=== PATIENT | male | born 1960 | race Caucasian/White ===

== ENCOUNTER 2019-06-12 10:45 | Inpatient (IN) | payer MEDICARE ==
--- NOTE | 2019-06-12 11:14 | Emergency Department Report ---
ED Neuro Deficit HPI - General Chief Complaint: Neuro Symptoms/Deficit Stated Complaint: LT SIDE WEAKNESS Time Seen by Provider: 06/12/19 10:58 Source: patient Mode of arrival: Wheelchair Limitations: No Limitations - History of Present Illness Initial Comments: [facility] Date of Service: 06/12/2019 10:55:26 Impression: RO Acute Ischemic Stroke Right Hemispheric Comments: the patient is a 58-year-old gentleman with what sounds like poorly controlled type 2 diabetes and a history of hypertension. He appears to be having a right hemispheric subcortical stroke syndrome. He does have evidence of chronic changes on CT head with likely asymptomatic lacunar infarcts in the deep subcortical regions of the right hemisphere. His blood sugar is also high which may be contributing to his weakness. Regardless he'll need stroke workup and inpatient neurology consultation. Because he was already taking aspirin daily recommend loading with Plavix 300 mg and is continuing aspirin for now until inpatient neurology consultation Mechanism of Stroke: Small Vessel Disease Metrics: Last Known Well: 06/11/2019 22:00:00 [facility] Notification Time: 06/12/2019 10:54:26 Arrival Time: 06/12/2019 10:45:00 Stamp Time: 06/12/2019 10:55:26 Time First Login Attempt: 06/12/2019 11:00:00 Video Start Time: 06/12/2019 11:00:00 Symptoms: left-sided weakness NIHSS Start Assessment Time: 06/12/2019 11:00:00 Patient is not a candidate for tPA. Patient was not deemed candidate for tPA thrombolytics because of Last Well Known Above 4.5 Hours. Video End Time: 06/12/2019 11:10:00 CT head showed no acute hemorrhage or acute core infarct. Advanced imaging was not obtained as the presentation was not suggestive of Large Vessel Occlusive Disease. ER physician notified of the decision on thrombolytics management. Our recommendations are outlined below. Recommendations: would load with Plavix 300 mg as long as the official read on the CT head is unremarkable Therapies: Physical Therapy, Occupational Therapy, Speech Therapy Assessment When Applicable Disposition: Sign Out Sign Out: Discussed with Emergency Department Provider History of Present Illness: Patient is a 58 years old Male. Patient was brought by EMS for symptoms of left-sided weakness 58-year-old gentleman with a history of hypertension and diabetes who for the past several days has had a headache. He went to bed at 22:00 without issue and then woke up at 6 AM and noticed that his left arm and leg felt weak. His blood glucose is 324 on arrival to the emergency department. Blood pressure 198 systolic. He's had a headache the past several days but nothing focal. No history of stroke. Takes aspirin daily. CT head showed no acute hemorrhage or acute core infarct. Examination: 1A: Level of Consciousness - Alert; keenly responsive + 0 1B: Ask Month and Age - Both Questions Right + 0 1C: Blink Eyes & Squeeze Hands - Performs Both Tasks + 0 2: Test Horizontal Extraocular Movements - Normal + 0 3: Test Visual Quijano - No Visual Loss + 0 4: Test Facial Palsy (Use Grimace if Obtunded) - Normal symmetry + 0 5A: Test Left Arm Motor Drift - Drift, but doesn't hit bed + 1 5B: Test Right Arm Motor Drift - No Drift for 10 Seconds + 0 6A: Test Left Leg Motor Drift - Drift, but doesn't hit bed + 1 6B: Test Right Leg Motor Drift - No Drift for 5 Seconds + 0 7: Test Limb Ataxia (FNF/Heel-Pruitt) - No Ataxia + 0 8: Test Sensation - Normal; No sensory loss + 0 9: Test Language/Aphasia - Normal; No aphasia + 0 10: Test Dysarthria - Normal + 0 11: Test Extinction/Inattention - No abnormality + 0 NIHSS Score: 2 Patient was informed the Neurology Consult would happen via TeleHealth consult by way of interactive audio and video telecommunications and consented to receiving care in this manner. Due to the immediate potential for life-threatening deterioration due to underlying acute neurologic illness, I spent 35 minutes providing critical care. This time includes time for face to face visit via telemedicine, review of medical records, imaging studies and discussion of findings with providers, the patient and/or family. Dr Nadia Mustafa [facility] - Related Data Allergies/Adverse Reactions: Allergies Allergy/AdvReac Type Severity Reaction Status Date / Time No Known Allergies Allergy Unverified 06/12/19 10:51 ED Review of Systems ROS: Stated complaint: LT SIDE WEAKNESS Other details as noted in HPI ED Past Medical Hx - Past Medical History Previous Medical History?: Yes Hx Hypertension: Yes Hx Diabetes: Yes - Surgical History Past Surgical History?: Yes Additional Surgical History: Femoral bypass BLE ED Neuro Physical Exam - General Limitations: No Limitations Suspected Stroke: Yes - NIHSS Assessment Interval: Baseline 1a. Level of Consciousness: alert/keenly responsive 1b. LOC Questions: answers both correctly 1c. LOC Commands: performs tasks correctly 2. Best Gaze: normal 3. Visual: no visual loss 4. Facial Palsy: normal symmetrical movement 5b. Motor Arm Right: no drift 5a. Motor Arm Left: drift 6a. Motor Leg Left: drift 6b. Motor Leg Right: no drift 7. Limb Ataxia: absent 8. Sensory: normal 9. Best Language: no aphasia 10. Dysarthria: normal 11. Extinction/Inattention: no abnormality Total Score: 2 Stroke Severity: Minor Stroke - Lab Data Lab Results 06/12/19 Range/Units 10:57 POC Glucose 327 H (70-105) Critical care attestation.: If time is entered above; I have spent that time in minutes in the direct care of this critically ill patient, excluding procedure time. ED Disposition Clinical Impression: Stroke (cerebrum) Qualifiers: CVA mechanism: unspecified Qualified Code(s): I63.9 - Cerebral infarction, unspecified Disposition: DC-09 OP ADMIT IP TO THIS HOSP Is pt being admited?: Yes Does the pt Need Aspirin: No Condition: Stable
--- NOTE | 2019-06-12 11:16 | Cat Scan Report ---
CT head/brain wo con INDICATION / CLINICAL INFORMATION: 58 years Male; neuro deficits <6hrs or sx present upon awakening. TECHNIQUE: Routine CT head without contrast. All CT scans at this location are performed using CT dos e reduction for ALARA by means of automated exposure control. COMPARISON: None. FINDINGS: BRAIN / INTRACRANIAL CONTENTS: There are old lacunar infarcts involving the right basal ganglia inclu ding the internal capsule. There otherwise appears to be mild cerebral white matter disease most cons istent with microvascular angiopathy. There is no clear CT evidence of acute intracranial hemorrhage or significant mass effect. ORBITS: No significant abnormality of visualized orbits. SINUSES / MASTOIDS: No significant abnormality the visualized paranasal sinuses or mastoid air cells. CRANIOCERVICAL JUNCTION: No significant abnormality. ADDITIONAL FINDINGS: None. IMPRESSION: 1. There are old small lacunar infarcts involving the right basal ganglia along with mild microvascul ar angiopathy. 2. There is no CT evidence of acute intracranial hemorrhage. The study was specified as code stroke and the findings were called emergently to Dr. Burton in the ER at 10:15 AM Central standard time. Signer Name: Harjeet Valdovinos MD Signed: 06/12/2019 11:11 AM Workstation Name: [id number]
[2019-06-12 11:21] LABS: Basophils # (Auto) 0.1 K/mm3 (0.0-0.1); Basophils % (Auto) 0.9 % (0.0-1.8); Eosinophils # (Auto) 0.2 K/mm3 (0.0-0.4); Eosinophils % (Auto) 2.8 % (0.0-4.3); Hematocrit 50.2 % (35.5-45.6); Hemoglobin 16.7 gm/dl (11.8-15.2); Lymphocytes # (Auto) 1.8 K/mm3 (1.2-5.4); Lymphocytes % (Auto) 22.8 % (13.4-35.0); Mean Corpuscular HGB Conc 33 % (32-34); Mean Corpuscular Volume 86 fl (84-94); Monocytes # (Auto) 0.8 K/mm3 (0.0-0.8); Monocytes % (Auto) 10.7 % (0.0-7.3); Platelet Count 178 K/mm3 (140-440); Red Blood Count 5.82 M/mm3 (3.65-5.03); Red Cell Distribution Width 13.6 % (13.2-15.2)
[2019-06-12 11:34] LABS: BUN/Creatinine Ratio 21; Blood Urea Nitrogen 17 mg/dL (9-20); Calcium 9.3 mg/dL (8.4-10.2); Hemolysis Index 14
[2019-06-12 11:35] LABS: INR 0.92 (0.87-1.13); Partial Thromboplastin Time 26.9 Sec. (24.2-36.6)
[2019-06-12] MEDS ORDERED: PLAVIX PO ONE (11:40)
[2019-06-12] MEDS ORDERED: HumuLIN R IV ONE (11:47)
--- NOTE | 2019-06-12 11:47 | Emergency Department Report ---
<TASNEEMRANJIT - Last Filed: 06/12/19 12:43> ED Neuro Deficit HPI - General Chief Complaint: Neuro Symptoms/Deficit Stated Complaint: LT SIDE WEAKNESS Time Seen by Provider: 06/12/19 10:58 - History of Present Illness Initial Comments: Patient is a 58-year-old male with history of uncontrolled diabetes, hypertension, and DVT who presents today with complaints of left-sided weakness times 6 AM this morning upon waking. Patient denies history of CVA or WI. He states when he went to bed around 11 PM last night he felt completely normal. Patient reports upon waking, he was unable to lift his left arm or left leg. He states the symptoms resolved after about 1 hour. She also admits to having a mild generalized headache for the past few days. Patient denies any dizziness, changes, trouble swallowing, difficulty with speech, chest pain, or shortness of breath. Patient states there is still some mild weakness on his left side and numbness/tingling in his legs. -: Sudden Location: left arm, left leg Presenting Symptoms: Present: Weak/Paralyzed One Side. Absent: Facial Droop/Numbness Place: home Severity: severe Quality: weak, numb Improves With: time Worsens With: none On Anticoagulants: No Context: sudden onset Associated Symptoms: headaches. denies: confusion, diaphoresis, nausea/vomiting, shortness of breath, syncope Treatments Prior to Arrival: Aspirin - Related Data Home Medications: Home Medications Medication Instructions Recorded Confirmed Last Taken Atorvastatin [Lipitor Tab] 40 mg PO QDAY 06/12/19 06/12/19 06/11/19 Valsartan [Diovan] 320 mg PO QDAY 06/12/19 06/12/19 06/11/19 hydrALAZINE [Apresoline TAB] 100 mg PO BID 06/12/19 06/12/19 06/11/19 Allergies/Adverse Reactions: Allergies Allergy/AdvReac Type Severity Reaction Status Date / Time No Known Allergies Allergy Verified 06/12/19 15:06 ED Review of Systems Constitutional: denies: chills, fever Eyes: denies: vision change ENT: denies: throat pain, hearing loss Respiratory: denies: cough, shortness of breath, wheezing Cardiovascular: denies: chest pain, palpitations Gastrointestinal: denies: abdominal pain, nausea, vomiting Musculoskeletal: denies: back pain, joint swelling, arthralgia Neurological: headache, weakness, numbness. denies: confusion ED Past Medical Hx - Medications Home Medications: Home Medications Medication Instructions Recorded Confirmed Last Taken Type Atorvastatin [Lipitor Tab] 40 mg PO QDAY 06/12/19 06/12/19 06/11/19 History Valsartan [Diovan] 320 mg PO QDAY 06/12/19 06/12/19 06/11/19 History hydrALAZINE [Apresoline TAB] 100 mg PO BID 06/12/19 06/12/19 06/11/19 History ED Neuro Physical Exam - Head Head exam: Present: atraumatic, normocephalic - Eye Eye exam: Present: normal appearance, PERRL, EOMI - ENT ENT exam: Absent: normal orophraynx - Neck Neck exam: Present: full ROM. Absent: tenderness - Respiratory Respiratory exam: Present: normal lung sounds bilaterally. Absent: respiratory distress, wheezes, rales, rhonchi - Cardiovascular Cardiovascular Exam: Present: regular rate, normal rhythm, normal heart sounds - GI/Abdominal GI/Abdominal exam: Present: soft. Absent: tenderness - Rectal Rectal exam: Present: deferred - Extremities Exam Extremities exam: Absent: full ROM, tenderness, joint swelling - Neurological Exam Neurological exam: Present: alert, oriented X3, CN II-XII intact, motor sensory deficit - Psychiatric Psychiatric exam: Present: normal affect, normal mood - Skin Skin exam: Present: warm, dry, intact, normal color. Absent: rash - Lab Data Result diagrams: 06/12/19 11:15 06/12/19 11:15 Lab Results 06/12/19 06/12/19 06/12/19 Range/Units 10:57 11:15 11:15 WBC 7.8 (4.5-11.0) K/mm3 RBC 5.82 H (3.65-5.03) M/mm3 Hgb 16.7 H (11.8-15.2) gm/dl Hct 50.2 H (35.5-45.6) % MCV 86 (84-94) fl MCH 29 (28-32) pg MCHC 33 (32-34) % RDW 13.6 (13.2-15.2) % Plt Count 178 (140-440) K/mm3 Lymph % (Auto) 22.8 (13.4-35.0) % [place] % (Auto) 10.7 H (0.0-7.3) % Eos % (Auto) 2.8 (0.0-4.3) % Baso % (Auto) 0.9 (0.0-1.8) % Lymph # 1.8 (1.2-5.4) K/mm3 [place] # 0.8 (0.0-0.8) K/mm3 Eos # 0.2 (0.0-0.4) K/mm3 Baso # 0.1 (0.0-0.1) K/mm3 Seg Neutrophils % 62.8 (40.0-70.0) % Seg Neutrophils # 4.9 (1.8-7.7) K/mm3 PT 12.1 L (12.2-14.9) Sec. INR 0.92 (0.87-1.13) APTT 26.9 (24.2-36.6) Sec. Thrombin Time (15.1-19.6) Sec. Sodium (137-145) mmol/L Potassium (3.6-5.0) mmol/L Chloride (98-107) mmol/L Carbon Dioxide (22-30) mmol/L Anion Gap mmol/L BUN (9-20) mg/dL Creatinine (0.8-1.5) mg/dL Estimated GFR ml/min BUN/Creatinine Ratio % Glucose (75-100) mg/dL POC Glucose 327 H (70-105) Calcium (8.4-10.2) mg/dL Troponin T (0.00-0.029) ng/mL 06/12/19 06/12/19 Range/Units 11:15 11:15 WBC (4.5-11.0) K/mm3 RBC (3.65-5.03) M/mm3 Hgb (11.8-15.2) gm/dl Hct (35.5-45.6) % MCV (84-94) fl MCH (28-32) pg MCHC (32-34) % RDW (13.2-15.2) % Plt Count (140-440) K/mm3 Lymph % (Auto) (13.4-35.0) % [place] % (Auto) (0.0-7.3) % Eos % (Auto) (0.0-4.3) % Baso % (Auto) (0.0-1.8) % Lymph # (1.2-5.4) K/mm3 [place] # (0.0-0.8) K/mm3 Eos # (0.0-0.4) K/mm3 Baso # (0.0-0.1) K/mm3 Seg Neutrophils % (40.0-70.0) % Seg Neutrophils # (1.8-7.7) K/mm3 PT (12.2-14.9) Sec. INR (0.87-1.13) APTT (24.2-36.6) Sec. Thrombin Time 17.1 (15.1-19.6) Sec. Sodium 136 L (137-145) mmol/L Potassium 4.3 (3.6-5.0) mmol/L Chloride 94.8 L (98-107) mmol/L Carbon Dioxide 28 (22-30) mmol/L Anion Gap 18 mmol/L BUN 17 (9-20) mg/dL Creatinine 0.8 (0.8-1.5) mg/dL Estimated GFR > 60 ml/min BUN/Creatinine Ratio 21 % Glucose 390 H (75-100) mg/dL POC Glucose (70-105) Calcium 9.3 (8.4-10.2) mg/dL Troponin T < 0.010 (0.00-0.029) ng/mL - Radiology Data Radiology results: report reviewed CT head/brain wo con INDICATION / CLINICAL INFORMATION: 58 years Male; neuro deficits <6hrs or sx present upon awakening. TECHNIQUE: Routine CT head without contrast. All CT scans at this location are performed using CT dose reduction for ALARA by means of automated exposure control. COMPARISON: None. FINDINGS: BRAIN / INTRACRANIAL CONTENTS: There are old lacunar infarcts involving the right basal ganglia including the internal capsule. There otherwise appears to be mild cerebral white matter disease most consistent with microvascular angiopathy. There is no clear CT evidence of acute intracranial hemorrhage or significant mass effect. ORBITS: No significant abnormality of visualized orbits. SINUSES / MASTOIDS: No significant abnormality the visualized paranasal sinuses or mastoid air cells. CRANIOCERVICAL JUNCTION: No significant abnormality. ADDITIONAL FINDINGS: None. IMPRESSION: 1. There are old small lacunar infarcts involving the right basal ganglia along with mild microvascular angiopathy. 2. There is no CT evidence of acute intracranial hemorrhage. The study was specified as code stroke and the findings were called emergently to Dr. Mota in the ER at 10:15 AM Central standard time. Signer Name: Harjeet Valdovinos MD Signed: 06/12/2019 11:11 AM Workstation Name: [id number] Transcribed By: MR Dictated By: Harjeet Valdovinos MD Electronically Authenticated By: Harjeet Valdovinos MD Signed Date/Time: 06/12/19 1111 DD/ 1107 TD/TT: ED Disposition Clinical Impression: Stroke (cerebrum) Qualifiers: CVA mechanism: unspecified Qualified Code(s): I63.9 - Cerebral infarction, unspecified Disposition: - OP ADMIT IP TO THIS HOSP Condition: Good <LAMAR MOTA - Last Filed: 06/12/19 15:09> ED Neuro Deficit HPI - General Source: patient Mode of arrival: Wheelchair Limitations: No Limitations - History of Present Illness -: unknown Location: left arm, left leg Presenting Symptoms: Present: Weak/Paralyzed One Side History of same: No Place: home Severity: moderate Quality: weak, numb Improves With: time ED Review of Systems ROS: Stated complaint: LT SIDE WEAKNESS Other details as noted in HPI ED Past Medical Hx - Past Medical History Previous Medical History?: Yes Hx Hypertension: Yes Hx Diabetes: Yes - Surgical History Past Surgical History?: Yes Additional Surgical History: Femoral bypass BLE - Social History Substance Use Type: None ED Neuro Physical Exam - General Limitations: No Limitations General appearance: alert, in no apparent distress Suspected Stroke: Yes - Head Head exam: Present: atraumatic, normocephalic - Eye Eye exam: Present: normal appearance - ENT ENT exam: Present: mucous membranes moist - Neck Neck exam: Present: normal inspection - Respiratory Respiratory exam: Present: normal lung sounds bilaterally. Absent: respiratory distress - Cardiovascular Cardiovascular Exam: Present: regular rate, normal rhythm. Absent: systolic murmur, diastolic murmur, rubs, gallop - GI/Abdominal GI/Abdominal exam: Present: soft, normal bowel sounds - Rectal Rectal exam: Present: deferred - Extremities Exam Extremities exam: Present: normal inspection - Back Exam Back exam: Present: normal inspection - Neurological Exam Neurological exam: Present: alert, oriented X3 - NIHSS Assessment Interval: Baseline 1a. Level of Consciousness: alert/keenly responsive 1b. LOC Questions: answers both correctly 1c. LOC Commands: performs tasks correctly 2. Best Gaze: normal 3. Visual: no visual loss 4. Facial Palsy: normal symmetrical movement 5b. Motor Arm Right: no drift 5a. Motor Arm Left: drift 6a. Motor Leg Left: drift 6b. Motor Leg Right: no drift 7. Limb Ataxia: absent 8. Sensory: mild/moderate sensory loss 9. Best Language: no aphasia 10. Dysarthria: normal 11. Extinction/Inattention: no abnormality Total Score: 3 Stroke Severity: Minor Stroke - Psychiatric Psychiatric exam: Present: normal affect, normal mood - Skin Skin exam: Present: warm, dry, intact, normal color. Absent: rash ED Course Vital Signs 06/12/19 06/12/19 06/12/19 11:04 11:16 11:30 Temperature Pulse Rate 78 68 73 Respiratory 17 17 14 Rate Blood Pressure 197/89 197/89 Blood Pressure [Left] O2 Sat by Pulse Oximetry 06/12/19 06/12/19 06/12/19 11:45 11:50 12:00 Temperature 97.1 F L Pulse Rate 69 80 68 Respiratory 16 16 15 Rate Blood Pressure Blood Pressure 234/107 [Left] O2 Sat by Pulse 100 96 Oximetry 06/12/19 06/12/19 06/12/19 12:16 12:30 12:33 Temperature Pulse Rate 69 Respiratory 14 15 Rate Blood Pressure 184/88 184/88 Blood Pressure [Left] O2 Sat by Pulse 100 Oximetry 06/12/19 06/12/19 06/12/19 12:46 13:00 13:34 Temperature Pulse Rate 72 70 Respiratory 10 L 16 Rate Blood Pressure 167/78 167/78 Blood Pressure [Left] O2 Sat by Pulse 100 Oximetry - Reevaluation(s) Reevaluation #1: [place] with symptoms at 6 AM which he states have gotten slightly better but are still persistent. They are left arm and leg weakness with mild sensory change of the left leg. He states he is compliant with aspirin. He's had no prior history of stroke. He is not a candidate for TPA secondary to wake up symptoms. There is no evidence of large vessel occlusion on unenhanced CT. Discussion with [facility] neurologist indicates that they recommend he get a loading dose of Plavix (300 mg) and admission for routine stroke workup and management. His sugars will be addressed and managed closely. 06/12/19 11:45 Reevaluation #2: Chest with hospitalist Dr. Greene. Patient will be admitted to telemetry. 06/12/19 11:48 - Lab Data Result diagrams: 06/12/19 11:15 06/12/19 11:15 Lab Results 06/12/19 06/12/19 06/12/19 Range/Units 10:57 11:15 11:15 WBC 7.8 (4.5-11.0) K/mm3 RBC 5.82 H (3.65-5.03) M/mm3 Hgb 16.7 H (11.8-15.2) gm/dl Hct 50.2 H (35.5-45.6) % MCV 86 (84-94) fl MCH 29 (28-32) pg MCHC 33 (32-34) % RDW 13.6 (13.2-15.2) % Plt Count 178 (140-440) K/mm3 Lymph % (Auto) 22.8 (13.4-35.0) % [place] % (Auto) 10.7 H (0.0-7.3) % Eos % (Auto) 2.8 (0.0-4.3) % Baso % (Auto) 0.9 (0.0-1.8) % Lymph # 1.8 (1.2-5.4) K/mm3 [place] # 0.8 (0.0-0.8) K/mm3 Eos # 0.2 (0.0-0.4) K/mm3 Baso # 0.1 (0.0-0.1) K/mm3 Seg Neutrophils % 62.8 (40.0-70.0) % Seg Neutrophils # 4.9 (1.8-7.7) K/mm3 PT 12.1 L (12.2-14.9) Sec. INR 0.92 (0.87-1.13) APTT 26.9 (24.2-36.6) Sec. Thrombin Time (15.1-19.6) Sec. Sodium (137-145) mmol/L Potassium (3.6-5.0) mmol/L Chloride (98-107) mmol/L Carbon Dioxide (22-30) mmol/L Anion Gap mmol/L BUN (9-20) mg/dL Creatinine (0.8-1.5) mg/dL Estimated GFR ml/min BUN/Creatinine Ratio % Glucose (75-100) mg/dL POC Glucose 327 H (70-105) Calcium (8.4-10.2) mg/dL Troponin T (0.00-0.029) ng/mL 06/12/19 06/12/19 Range/Units 11:15 11:15 WBC (4.5-11.0) K/mm3 RBC (3.65-5.03) M/mm3 Hgb (11.8-15.2) gm/dl Hct (35.5-45.6) % MCV (84-94) fl MCH (28-32) pg MCHC (32-34) % RDW (13.2-15.2) % Plt Count (140-440) K/mm3 Lymph % (Auto) (13.4-35.0) % [place] % (Auto) (0.0-7.3) % Eos % (Auto) (0.0-4.3) % Baso % (Auto) (0.0-1.8) % Lymph # (1.2-5.4) K/mm3 [place] # (0.0-0.8) K/mm3 Eos # (0.0-0.4) K/mm3 Baso # (0.0-0.1) K/mm3 Seg Neutrophils % (40.0-70.0) % Seg Neutrophils # (1.8-7.7) K/mm3 PT (12.2-14.9) Sec. INR (0.87-1.13) APTT (24.2-36.6) Sec. Thrombin Time 17.1 (15.1-19.6) Sec. Sodium 136 L (137-145) mmol/L Potassium 4.3 (3.6-5.0) mmol/L Chloride 94.8 L (98-107) mmol/L Carbon Dioxide 28 (22-30) mmol/L Anion Gap 18 mmol/L BUN 17 (9-20) mg/dL Creatinine 0.8 (0.8-1.5) mg/dL Estimated GFR > 60 ml/min BUN/Creatinine Ratio 21 % Glucose 390 H (75-100) mg/dL POC Glucose (70-105) Calcium 9.3 (8.4-10.2) mg/dL Troponin T < 0.010 (0.00-0.029) ng/mL - Thrombolytic Inclusion/Exclusion Thrombolytic Exclusion Criteria: Onset of Symptoms Unknown Critical care attestation.: If time is entered above; I have spent that time in minutes in the direct care of this critically ill patient, excluding procedure time. ED Disposition Is pt being admited?: Yes Does the pt Need Aspirin: Yes Time of Disposition: 15:04
--- NOTE | 2019-06-12 12:02 | XRay Report ---
CHEST 1 VIEW INDICATION: hypertension. COMPARISON: None. FINDINGS: Support devices: None. Heart: Within normal limits. Pulmonary vasculature: Central vascular congestion. Lungs/Pleura: Right basal interstitial opacities but otherwise clear lungs. No pulmonary consolidatio n. No pleural effusion. Additional findings: Aortic calcification and tortuosity. IMPRESSION: 1. No CHF. 2. Hypertensive changes in the aorta. 3. Right basal interstitial opacities are of uncertain significance but are probably chronic. Signer Name: Benjie Nolasco MD Signed: 06/12/2019 11:58 AM Workstation Name: [id number]
--- NOTE | 2019-06-12 12:24 | Emergency Department Report ---
ED Neuro Deficit HPI - General Chief Complaint: Neuro Symptoms/Deficit Stated Complaint: LT SIDE WEAKNESS Time Seen by Provider: 06/12/19 10:58 Source: patient Mode of arrival: Wheelchair Limitations: No Limitations - History of Present Illness Initial Comments: Patient is a 58-year-old male with history of uncontrolled diabetes, hypertension, and DVT who presents today with complaints of left-sided weakness times 6 AM this morning upon waking. Patient denies history of CVA or MS. He states when he went to bed around 11 PM last night he felt completely normal. Patient reports upon waking, he was unable to lift his left arm or left leg. He states the symptoms resolved after about 1 hour. She also admits to having a mild generalized headache for the past few days. Patient denies any dizziness, changes, trouble swallowing, difficulty with speech, chest pain, or shortness of breath. Patient states there is still some mild weakness on his left side and numbness/tingling in his legs. -: Sudden Location: left arm, left leg Presenting Symptoms: Present: Weak/Paralyzed One Side History of same: No Place: home Severity: severe Quality: weak, numb, improving Improves With: none Worsens With: none Associated Symptoms: headaches, weakness. denies: confusion, chest pain, fever/chills, malise, nausea/vomiting, shortness of breath Treatments Prior to Arrival: Aspirin - Related Data Allergies/Adverse Reactions: Allergies Allergy/AdvReac Type Severity Reaction Status Date / Time No Known Allergies Allergy Unverified 06/12/19 10:51 ED Review of Systems ROS: Stated complaint: LT SIDE WEAKNESS Other details as noted in HPI Constitutional: denies: chills, fever Eyes: denies: eye pain, vision change ENT: denies: hearing loss Respiratory: denies: cough, shortness of breath, wheezing Cardiovascular: denies: chest pain, palpitations Gastrointestinal: denies: abdominal pain Musculoskeletal: denies: back pain, joint swelling, arthralgia Neurological: headache, weakness, numbness Psychiatric: denies: anxiety, depression ED Past Medical Hx - Past Medical History Previous Medical History?: Yes Hx Hypertension: Yes Hx Diabetes: Yes - Surgical History Past Surgical History?: Yes Additional Surgical History: Femoral bypass BLE - Social History Smoking Status: Never Smoker Substance Use Type: None ED Neuro Physical Exam - General Limitations: No Limitations General appearance: alert, in no apparent distress Suspected Stroke: Yes - Head Head exam: Present: atraumatic - Eye Eye exam: Present: normal appearance, PERRL, EOMI. Absent: scleral icterus - ENT ENT exam: Present: normal exam, normal orophraynx - Neck Neck exam: Present: normal inspection, full ROM. Absent: tenderness - Respiratory Respiratory exam: Present: normal lung sounds bilaterally. Absent: respiratory distress, wheezes, rales, rhonchi - Cardiovascular Cardiovascular Exam: Present: regular rate, normal rhythm, normal heart sounds - GI/Abdominal GI/Abdominal exam: Present: soft. Absent: tenderness - Extremities Exam Extremities exam: Absent: tenderness, joint swelling - Back Exam Back exam: Present: normal inspection - NIHSS 1b. LOC Questions: answers both correctly 1c. LOC Commands: performs tasks correctly 2. Best Gaze: normal 3. Visual: no visual loss 4. Facial Palsy: normal symmetrical movement 5b. Motor Arm Right: no drift 5a. Motor Arm Left: drift 6a. Motor Leg Left: drift 6b. Motor Leg Right: no drift 7. Limb Ataxia: absent 8. Sensory: mild/moderate sensory loss 9. Best Language: no aphasia 10. Dysarthria: normal 11. Extinction/Inattention: no abnormality - Psychiatric Psychiatric exam: Present: normal affect, normal mood - Skin Skin exam: Present: warm, dry, intact, normal color. Absent: rash ED Course Vital Signs 06/12/19 11:50 Temperature 97.1 F L Pulse Rate 80 Respiratory 16 Rate Blood Pressure 234/107 [Left] O2 Sat by Pulse 96 Oximetry - Lab Data Result diagrams: 06/12/19 11:15 06/12/19 11:15 Lab Results 06/12/19 06/12/19 06/12/19 Range/Units 10:57 11:15 11:15 WBC 7.8 (4.5-11.0) K/mm3 RBC 5.82 H (3.65-5.03) M/mm3 Hgb 16.7 H (11.8-15.2) gm/dl Hct 50.2 H (35.5-45.6) % MCV 86 (84-94) fl MCH 29 (28-32) pg MCHC 33 (32-34) % RDW 13.6 (13.2-15.2) % Plt Count 178 (140-440) K/mm3 Lymph % (Auto) 22.8 (13.4-35.0) % [place] % (Auto) 10.7 H (0.0-7.3) % Eos % (Auto) 2.8 (0.0-4.3) % Baso % (Auto) 0.9 (0.0-1.8) % Lymph # 1.8 (1.2-5.4) K/mm3 [place] # 0.8 (0.0-0.8) K/mm3 Eos # 0.2 (0.0-0.4) K/mm3 Baso # 0.1 (0.0-0.1) K/mm3 Seg Neutrophils % 62.8 (40.0-70.0) % Seg Neutrophils # 4.9 (1.8-7.7) K/mm3 PT 12.1 L (12.2-14.9) Sec. INR 0.92 (0.87-1.13) APTT 26.9 (24.2-36.6) Sec. Thrombin Time (15.1-19.6) Sec. Sodium (137-145) mmol/L Potassium (3.6-5.0) mmol/L Chloride (98-107) mmol/L Carbon Dioxide (22-30) mmol/L Anion Gap mmol/L BUN (9-20) mg/dL Creatinine (0.8-1.5) mg/dL Estimated GFR ml/min BUN/Creatinine Ratio % Glucose (75-100) mg/dL POC Glucose 327 H (70-105) Calcium (8.4-10.2) mg/dL Troponin T (0.00-0.029) ng/mL 06/12/19 06/12/19 06/12/19 Range/Units 11:15 11:15 12:09 WBC (4.5-11.0) K/mm3 RBC (3.65-5.03) M/mm3 Hgb (11.8-15.2) gm/dl Hct (35.5-45.6) % MCV (84-94) fl MCH (28-32) pg MCHC (32-34) % RDW (13.2-15.2) % Plt Count (140-440) K/mm3 Lymph % (Auto) (13.4-35.0) % [place] % (Auto) (0.0-7.3) % Eos % (Auto) (0.0-4.3) % Baso % (Auto) (0.0-1.8) % Lymph # (1.2-5.4) K/mm3 [place] # (0.0-0.8) K/mm3 Eos # (0.0-0.4) K/mm3 Baso # (0.0-0.1) K/mm3 Seg Neutrophils % (40.0-70.0) % Seg Neutrophils # (1.8-7.7) K/mm3 PT (12.2-14.9) Sec. INR (0.87-1.13) APTT (24.2-36.6) Sec. Thrombin Time 17.1 (15.1-19.6) Sec. Sodium 136 L (137-145) mmol/L Potassium 4.3 (3.6-5.0) mmol/L Chloride 94.8 L (98-107) mmol/L Carbon Dioxide 28 (22-30) mmol/L Anion Gap 18 mmol/L BUN 17 (9-20) mg/dL Creatinine 0.8 (0.8-1.5) mg/dL Estimated GFR > 60 ml/min BUN/Creatinine Ratio 21 % Glucose 390 H (75-100) mg/dL POC Glucose 300 H (70-105) Calcium 9.3 (8.4-10.2) mg/dL Troponin T < 0.010 (0.00-0.029) ng/mL - Medical Decision Making Patient here for sided weakness occurring at 6 AM. Symptoms severe for one hour and are now improving. NIHS score =3. Patient was assessed by Dr. Mustafa, teleneurology-states patient appears to be having a right hemispheric subcortical stroke syndrome. CT head shows chronic changes and the patient is a 58-year-old gentleman with what sounds like poorly controlled type 2 diabetes and a history of hypertension. He appears to be having a right hemispheric subcortical stroke syndrome. He does have evidence of chronic changes on CT head with likely asymptomatic lacunar infarcts in the deep subcortical regions of the right hemisphere. His blood sugar is also high which may be contributing to his weakness. Regardless he'll need stroke workup and inpatient neurology consultation. Because he was already taking aspirin daily recommend loading with Plavix 300 mg and is continuing aspirin for now until inpatient neurology consultation Critical care attestation.: If time is entered above; I have spent that time in minutes in the direct care of this critically ill patient, excluding procedure time. ED Disposition Disposition: -09 OP ADMIT IP TO THIS HOSP Condition: Stable Referrals: PRIMARY CARE, [Primary Care Provider] - 3-5 Days
[2019-06-12 12:52] LABS: Albumin 3.7 g/dL (3.9-5)
[2019-06-12 13:14] LABS: Bilirubin,Direct 0.2 mg/dL (0-0.2)
[2019-06-12] MEDS ORDERED: BABY ASPIRIN PO SCH (16:00)
--- NOTE | 2019-06-12 17:23 | History and Physical Report ---
History of Present Illness Date of examination: 06/12/19 Date of admission: 06/12/19 11:48 Chief complaint: Left sided weakness since 6 AM which is resolved after 1 hour History of present illness: 58-year-old male with history of uncontrolled diabetes, hypertension, and DVT presents with complaints of left-sided weakness 6 since AM this morning upon waking. No history of cerebrovascular accident or HI in the past. Apparently patient was completely normal and went to bed at 11 PM. Patient unable to use his left lower extremity and left upper extremity since he woke up at 6 AM. Patient's symptoms resolved after 1 hour. Also has generalized head ache for the past few days. No dizziness. Able to walk now. No recent travel. No fever or chills. No exacerbating or relieving factors. No diplopia or nasal regurgitation of fluids. Past History Past Medical History: hypertension, hyperlipidemia Past Surgical History: No surgical history Social history: lives with family, full code Family history: hypertension Medications and Allergies Allergies Allergy/AdvReac Type Severity Reaction Status Date / Time No Known Allergies Allergy Verified 06/12/19 15:06 Home Medications Medication Instructions Recorded Confirmed Last Taken Type Atorvastatin [Lipitor Tab] 40 mg PO QDAY 06/12/19 06/12/19 06/11/19 History Valsartan [Diovan] 320 mg PO QDAY 06/12/19 06/12/19 06/11/19 History hydrALAZINE [Apresoline TAB] 100 mg PO BID 06/12/19 06/12/19 06/11/19 History Active Meds: Active Medications Aspirin (Baby Aspirin) 162 mg PO QDAY TELLY Review of Systems All systems: negative Constitutional: no weight loss, no weight gain, no fever, no chills Ears, nose, mouth and throat: no ear pain, no ear discharge, no tinnitis, no decreased hearing Cardiovascular: no chest pain, no orthopnea, no palpitations, no rapid/irregular heart beat, no edema, no syncope, no lightheadedness, no shortness of breath Respiratory: no cough, no cough with sputum, no excessive sputum, no hemoptysis, no shortness of breath, no dyspnea on exertion Gastrointestinal: no abdominal pain, no nausea, no vomiting, no diarrhea, no constipation, no change in bowel habits, no hematemesis, no coffee ground emesis Genitourinary Male: no urinary frequency, no urinary hesitancy, no nocturia Rectal: no pain Musculoskeletal: no neck stiffness, no neck pain, no shooting arm pain, no arm numbness/tingling, no low back pain, no shooting leg pain, no leg numbness/tingling, no redness of joints Integumentary: no rash, no pruritis, no redness, no sores, no wounds, no j aundice, no boils, no blisters Neurological: motor disturbance, no seizures, no syncope Psychiatric: no anxiety, no memory loss, no change in sleep habits, no sleep disturbances, no insomnia, no hypersomnia Endocrine: no cold intolerance, no heat intolerance, no polyphagia, no excessive thirst, no polydipsia, no polyuria, no nocturia, no excessive sweating, no flushing, no weight change Hematologic/Lymphatic: no easy bruising, no easy bleeding Allergic/Immunologic: no urticaria, no allergic rhinitis, no wheezing Exam - Constitutional Vitals: Temp Pulse Resp BP Pulse Ox 97.1 F L 70 16 167/78 100 06/12/19 11:50 06/12/19 13:00 06/12/19 13:00 06/12/19 13:00 06/12/19 13:34 General appearance: Present: no acute distress, well-nourished - EENT Eyes: Present: PERRL ENT: hearing intact, clear oral mucosa - Neck Neck: Present: supple, normal ROM - Respiratory Respiratory effort: normal Respiratory: bilateral: CTA - Cardiovascular Heart rate: 78 Rhythm: regular Heart Sounds: Present: S1 & S2. Absent: rub, click - Extremities Extremities: no ischemia, pulses intact, pulses symmetrical, No edema Extremity abnormal: edema Peripheral Pulses: within normal limits - Abdominal General gastrointestinal: Present: soft, non-tender, non-distended, normal bowel sounds Male genitourinary: Present: normal - Rectal Rectal Exam: deferred - Integumentary Integumentary: Present: clear, warm, dry - Musculoskeletal Musculoskeletal: gait normal, strength equal bilaterally - Psychiatric Psychiatric: appropriate mood/affect, intact judgment & insight - Neurologic Neurologic: CNII-XII intact, moves all extremities Results - Labs CBC & Chem 7: 06/12/19 11:15 06/12/19 11:15 Labs: Laboratory Last Values WBC 7.8 K/mm3 (4.5-11.0) 06/12/19 11:15 RBC 5.82 M/mm3 (3.65-5.03) H 06/12/19 11:15 Hgb 16.7 gm/dl (11.8-15.2) H 06/12/19 11:15 Hct 50.2 % (35.5-45.6) H 06/12/19 11:15 MCV 86 fl (84-94) 06/12/19 11:15 MCH 29 pg (28-32) 06/12/19 11:15 MCHC 33 % (32-34) 06/12/19 11:15 RDW 13.6 % (13.2-15.2) 06/12/19 11:15 Plt Count 178 K/mm3 (140-440) 06/12/19 11:15 Lymph % (Auto) 22.8 % (13.4-35.0) 06/12/19 11:15 [place] % (Auto) 10.7 % (0.0-7.3) H 06/12/19 11:15 Eos % (Auto) 2.8 % (0.0-4.3) 06/12/19 11:15 Baso % (Auto) 0.9 % (0.0-1.8) 06/12/19 11:15 Lymph # 1.8 K/mm3 (1.2-5.4) 06/12/19 11:15 [place] # 0.8 K/mm3 (0.0-0.8) 06/12/19 11:15 Eos # 0.2 K/mm3 (0.0-0.4) 06/12/19 11:15 Baso # 0.1 K/mm3 (0.0-0.1) 06/12/19 11:15 Seg Neutrophils % 62.8 % (40.0-70.0) 06/12/19 11:15 Seg Neutrophils # 4.9 K/mm3 (1.8-7.7) 06/12/19 11:15 PT 12.1 Sec. (12.2-14.9) L 06/12/19 11:15 INR 0.92 (0.87-1.13) 06/12/19 11:15 APTT 26.9 Sec. (24.2-36.6) 06/12/19 11:15 Thrombin Time 17.1 Sec. (15.1-19.6) 06/12/19 11:15 Sodium 136 mmol/L (137-145) L 06/12/19 11:15 Potassium 4.3 mmol/L (3.6-5.0) 06/12/19 11:15 Chloride 94.8 mmol/L (98-107) L 06/12/19 11:15 Carbon Dioxide 28 mmol/L (22-30) 06/12/19 11:15 Anion Gap 18 mmol/L 06/12/19 11:15 BUN 17 mg/dL (9-20) 06/12/19 11:15 Creatinine 0.8 mg/dL (0.8-1.5) 06/12/19 11:15 Estimated GFR > 60 ml/min 06/12/19 11:15 BUN/Creatinine Ratio 21 % 06/12/19 11:15 Glucose 390 mg/dL (75-100) H 06/12/19 11:15 POC Glucose 300 (70-105) H 06/12/19 12:09 Calcium 9.3 mg/dL (8.4-10.2) 06/12/19 11:15 Magnesium 1.80 mg/dL (1.7-2.3) 06/12/19 11:49 Total Bilirubin 0.30 mg/dL (0.1-1.2) 06/12/19 11:49 Direct Bilirubin 0.2 mg/dL (0-0.2) 06/12/19 11:49 Indirect Bilirubin 0.1 mg/dL 06/12/19 11:49 AST 16 units/L (5-40) 06/12/19 11:49 ALT 20 units/L (7-56) 06/12/19 11:49 Alkaline Phosphatase 97 units/L (35-129) 06/12/19 11:49 Troponin T < 0.010 ng/mL (0.00-0.029) 06/12/19 11:15 NT-Pro-B Natriuret Pep 324.4 pg/mL (0-900) 06/12/19 11:49 Total Protein 6.4 g/dL (6.3-8.2) 06/12/19 11:49 Albumin 3.7 g/dL (3.9-5) L 06/12/19 11:49 Albumin/Globulin Ratio 1.4 % 06/12/19 11:49 Short CBC 06/12/19 Range/Units 11:15 WBC 7.8 (4.5-11.0) K/mm3 Hgb 16.7 H (11.8-15.2) gm/dl Hct 50.2 H (35.5-45.6) % Plt Count 178 (140-440) K/mm3 BMP 06/12/19 11:15 Sodium 136 L Potassium 4.3 Chloride 94.8 L Carbon Dioxide 28 BUN 17 Creatinine 0.8 Glucose 390 H Calcium 9.3 Cardiac Enzymes 06/12/19 Range/Units 11:15 Troponin T < 0.010 (0.00-0.029) ng/mL Liver Function 06/12/19 Range/Units 11:49 Total Bilirubin 0.30 (0.1-1.2) mg/dL Direct Bilirubin 0.2 (0-0.2) mg/dL AST 16 (5-40) units/L ALT 20 (7-56) units/L Alkaline Phosphatase 97 (35-129) units/L Albumin 3.7 L (3.9-5) g/dL
[2019-06-12] MEDS ORDERED: APRESOLINE IV PRN (17:59)
[2019-06-12] MEDS ORDERED: NON-FORMULARY (Valsartan [Diovan] 320 MG) PO SCH (18:00)
[2019-06-12] MEDS: APRESOLINE IV PRN (18:15)
[2019-06-12] MEDS: DIOVAN PO SCH (18:20)
[2019-06-12] MEDS: HumaLOG SUB-Q SCH ×2 (18:22→21:28)
[2019-06-12] MEDS: APRESOLINE PO SCH (21:28)
[2019-06-12] MEDS ORDERED: DILAUDID IV PRN (21:54)
[2019-06-12] MEDS ORDERED: PERCOCET 5/325 PO PRN (21:54)
[2019-06-12] MEDS ORDERED: ZOFRAN IV PRN (21:54)
[2019-06-12] MEDS ORDERED: AMBIEN PO PRN (21:54)
[2019-06-12] MEDS ORDERED: TYLENOL PO PRN (21:54)
[2019-06-12] MEDS ORDERED: SODIUM CHLORIDE FLUSH SYRINGE 10 ML IV PRN (21:54)
[2019-06-12] MEDS ORDERED: SODIUM CHLORIDE FLUSH SYRINGE 10 ML INJ PRN (21:56)
[2019-06-12] MEDS: PEPCID PO SCH (23:04)
[2019-06-12] MEDS: SODIUM CHLORIDE FLUSH SYRINGE 10 ML IV SCH (23:04)
[2019-06-13] MEDS: APRESOLINE IV PRN ×2 (00:31→16:17)
[2019-06-13 04:20] LABS: Basophils # (Auto) 0.1 K/mm3 (0.0-0.1); Basophils % (Auto) 0.5 % (0.0-1.8); Eosinophils # (Auto) 0.3 K/mm3 (0.0-0.4); Eosinophils % (Auto) 2.6 % (0.0-4.3); Hematocrit 47.4 % (35.5-45.6); Hemoglobin 15.9 gm/dl (11.8-15.2); Lymphocytes # (Auto) 1.7 K/mm3 (1.2-5.4); Lymphocytes % (Auto) 16.4 % (13.4-35.0); Mean Corpuscular HGB Conc 34 % (32-34); Mean Corpuscular Volume 86 fl (84-94); Monocytes # (Auto) 0.9 K/mm3 (0.0-0.8); Monocytes % (Auto) 9.2 % (0.0-7.3); Platelet Count 165 K/mm3 (140-440); Red Blood Count 5.49 M/mm3 (3.65-5.03); Red Cell Distribution Width 13.4 % (13.2-15.2)
[2019-06-13 05:02] LABS: Alanine Aminotransferase 20 units/L (7-56); Albumin 3.2 g/dL (3.9-5); BUN/Creatinine Ratio 19; Blood Urea Nitrogen 19 mg/dL (9-20); Calcium 8.9 mg/dL (8.4-10.2); Chol/HDL Ratio 4.38 %; HDL Cholesterol 31 mg/dL (40-59); Hemolysis Index 25; LDL Cholesterol,Direct 44 mg/dL (50-130)
[2019-06-13] MEDS: HumaLOG SUB-Q SCH ×4 (09:00→21:16)
[2019-06-13] MEDS ORDERED: ASPIRIN PO SCH (10:00)
[2019-06-13] MEDS: AMARYL PO SCH (12:00)
[2019-06-13] MEDS: PEPCID PO SCH ×2 (12:00→21:15)
[2019-06-13] MEDS: GLUCOPHAGE PO SCH ×2 (12:01→17:36)
[2019-06-13] MEDS: APRESOLINE PO SCH ×2 (12:01→21:15)
[2019-06-13] MEDS: DIOVAN PO SCH (12:01)
[2019-06-13] MEDS: HABITROL TD SCH (12:02)
[2019-06-13] MEDS: SODIUM CHLORIDE FLUSH SYRINGE 10 ML IV SCH ×2 (12:02→21:17)
--- NOTE | 2019-06-13 12:08 | Progress Note ---
Assessment and Plan Assessment and plan: --Acute CVA: not a candidate for TPA Neuro w/u in progress Aspirin and statin PT and OT rehabilitation -Echo EF 50-55% abnormal diastolic fillingNo PFO -CT head without contrast; there are old small lacunar infarcts involving the right basal ganglia along with mild microvascular angiopathic no acute intracranial abnormality noted -Chest x-ray; no CHF, hypertensive changes in the aorta Right basal interstitial opacities of uncertain significance but are probably chronic --MRI brain revealed 2 foci of right subcortical infarcts in the thalamus. MRA head and neck did not reveal any significant stenosis. --HTN: continue antihypertensives PRN medications --Type 2 DM:Accu checks,SSC,ADA diet oral hypglcemics and insulin as needed HbA1c: 10.6% --Dyslipidemia:statin. PT/OT ,rehab f/u neuro workup Discharge planning per CM. Plan of care reviewed with the patient and his nurse. Disposition: Follow clinically Discharge when medically stable. History Interval history: Patient seen and examined,medical records reviewed No new complaints,vitals stable Hospitalist Physical - Constitutional Vitals: Temp Pulse Resp BP Pulse Ox 98.0 F 90 20 176/87 94 06/13/19 04:14 06/13/19 12:01 06/13/19 04:14 06/13/19 12:01 06/13/19 04:14 General appearance: Present: no acute distress, well-nourished - EENT Eyes: Present: PERRL, EOM intact - Neck Neck: Present: supple. Absent: normal ROM - Respiratory Respiratory effort: normal Respiratory: negative: rales, rhonchi, wheezing - Cardiovascular Rhythm: regular Heart Sounds: Present: S1 & S2 - Extremities Extremities: no ischemia, No edema - Abdominal General gastrointestinal: soft, non-tender, non-distended, normal bowel sounds - Integumentary Integumentary: Present: clear, warm - Psychiatric Psychiatric: appropriate mood/affect, cooperative - Neurologic Neurologic: moves all extremities Results - Labs CBC & Chem 7: 06/13/19 03:48 06/13/19 03:48 Labs: Laboratory Last Values WBC 10.2 K/mm3 (4.5-11.0) 06/13/19 03:48 RBC 5.49 M/mm3 (3.65-5.03) H 06/13/19 03:48 Hgb 15.9 gm/dl (11.8-15.2) H 06/13/19 03:48 Hct 47.4 % (35.5-45.6) H 06/13/19 03:48 MCV 86 fl (84-94) 06/13/19 03:48 MCH 29 pg (28-32) 06/13/19 03:48 MCHC 34 % (32-34) 06/13/19 03:48 RDW 13.4 % (13.2-15.2) 06/13/19 03:48 Plt Count 165 K/mm3 (140-440) 06/13/19 03:48 Lymph % (Auto) 16.4 % (13.4-35.0) 06/13/19 03:48 [place] % (Auto) 9.2 % (0.0-7.3) H 06/13/19 03:48 Eos % (Auto) 2.6 % (0.0-4.3) 06/13/19 03:48 Baso % (Auto) 0.5 % (0.0-1.8) 06/13/19 03:48 Lymph # 1.7 K/mm3 (1.2-5.4) 06/13/19 03:48 [place] # 0.9 K/mm3 (0.0-0.8) H 06/13/19 03:48 Eos # 0.3 K/mm3 (0.0-0.4) 06/13/19 03:48 Baso # 0.1 K/mm3 (0.0-0.1) 06/13/19 03:48 Seg Neutrophils % 71.3 % (40.0-70.0) H 06/13/19 03:48 Seg Neutrophils # 7.3 K/mm3 (1.8-7.7) 06/13/19 03:48 PT 12.1 Sec. (12.2-14.9) L 06/12/19 11:15 INR 0.92 (0.87-1.13) 06/12/19 11:15 APTT 26.9 Sec. (24.2-36.6) 06/12/19 11:15 Thrombin Time 17.1 Sec. (15.1-19.6) 06/12/19 11:15 Sodium 135 mmol/L (137-145) L 06/13/19 03:48 Potassium 3.9 mmol/L (3.6-5.0) 06/13/19 03:48 Chloride 93.1 mmol/L (98-107) L 06/13/19 03:48 Carbon Dioxide 29 mmol/L (22-30) 06/13/19 03:48 Anion Gap 17 mmol/L 06/13/19 03:48 BUN 19 mg/dL (9-20) 06/13/19 03:48 Creatinine 1.0 mg/dL (0.8-1.5) 06/13/19 03:48 Estimated GFR > 60 ml/min 06/13/19 03:48 BUN/Creatinine Ratio 19 % 06/13/19 03:48 Glucose 317 mg/dL (75-100) H 06/13/19 03:48 POC Glucose 291 (70-105) H 06/12/19 21:27 Hemoglobin A1c 10.6 % (4-6) H 06/12/19 11:15 Calcium 8.9 mg/dL (8.4-10.2) 06/13/19 03:48 Magnesium 1.80 mg/dL (1.7-2.3) 06/12/19 11:49 Total Bilirubin 0.40 mg/dL (0.1-1.2) 06/13/19 03:48 Direct Bilirubin 0.2 mg/dL (0-0.2) 06/12/19 11:49 Indirect Bilirubin 0.1 mg/dL 06/12/19 11:49 AST 20 units/L (5-40) 06/13/19 03:48 ALT 20 units/L (7-56) 06/13/19 03:48 Alkaline Phosphatase 85 units/L (35-129) 06/13/19 03:48 Troponin T < 0.010 ng/mL (0.00-0.029) 06/12/19 11:15 NT-Pro-B Natriuret Pep 324.4 pg/mL (0-900) 06/12/19 11:49 Total Protein 6.4 g/dL (6.3-8.2) 06/13/19 03:48 Albumin 3.2 g/dL (3.9-5) L 06/13/19 03:48 Albumin/Globulin Ratio 1.0 % 06/13/19 03:48 Triglycerides 288 mg/dL (2-149) H 06/13/19 03:48 Cholesterol 136 mg/dL (50-199) 06/13/19 03:48 LDL Cholesterol Direct 44 mg/dL (50-130) L 06/13/19 03:48 HDL Cholesterol 31 mg/dL (40-59) L 06/13/19 03:48 Cholesterol/HDL Ratio 4.38 % 06/13/19 03:48 Active Medications - Current Medications Current Medications: Generic Name Dose Route Start Last Admin Trade Name Freq PRN Reason Stop Dose Admin Acetaminophen 650 mg 06/12/19 21:54 Tylenol PO Q4H PRN Pain MILD(1-3)/Fever >100.5/TOMAS Aspirin 325 mg 06/13/19 10:00 06/13/19 12:01 Aspirin PO 325 mg QDAY TELLY Administration Atorvastatin Calcium 40 mg 06/12/19 22:00 06/12/19 21:28 Lipitor PO 40 mg QHS TELLY Administration Famotidine 20 mg 06/12/19 22:00 06/13/19 12:00 Pepcid PO 20 mg BID TELLY Administration Glimepiride 4 mg 06/13/19 09:00 06/13/19 12:00 Amaryl PO 4 mg QDDIAB TELLY Administration Hydralazine HCl 100 mg 06/12/19 22:00 06/13/19 12:01 Apresoline PO 100 mg BID TELLY Administration Hydralazine HCl 10 mg 06/12/19 18:02 06/13/19 00:31 Apresoline IV 10 mg Q3H PRN Administration Blood Pressure Hydromorphone HCl 0.5 mg 06/12/19 21:54 Dilaudid IV Q3H PRN Pain , Severe (7-10) Insulin Human Lispro 0 unit 06/12/19 22:00 06/13/19 12:02 Humalog SUB-Q 3 unit ACHS TELLY Administration Protocol Metformin HCl 500 mg 06/13/19 09:00 06/13/19 12:01 Glucophage PO 500 mg BIDDIAB TELLY Administration Nicotine 14 mg 06/13/19 10:00 06/13/19 12:02 Habitrol TD 14 mg QDAY TELLY Administration Ondansetron HCl 4 mg 06/12/19 21:54 Zofran IV Q8H PRN Nausea And Vomiting Oxycodone/Acetaminophen 1 tab 06/12/19 21:54 Percocet 5/325 PO Q6H PRN Pain, Moderate (4-6) Sodium Chloride 10 ml 06/12/19 22:00 06/13/19 12:02 Sodium Chloride Flush Syringe 10 Ml IV 10 ml BID TELLY Administration Sodium Chloride 10 ml 06/12/19 21:54 Sodium Chloride Flush Syringe 10 Ml IV PRN PRN LINE FLUSH Valsartan 320 mg 06/12/19 18:00 06/13/19 12:01 Diovan PO 320 mg QDAY TELLY Administration Zolpidem Tartrate 5 mg 06/12/19 21:54 Ambien PO QHS PRN Insomnia Nutrition/Malnutrition Assess - Dietary Evaluation Nutrition/Malnutrition Findings: Nutrition Notes Start: 06/13/19 11:10 Freq: Status: Active Protocol: Document 06/13/19 11:10 PS (Rec: 06/13/19 11:33 PS [id number]) Co-Sign 06/13/19 11:10 LP Nutrition Notes Need for Assessment generated from: MD Order,Education Initial or Follow up Brief Note Current Diagnosis Diabetes,Hypertension Other Pertinent Diagnosis DVT Prophylaxis, Stroke Current Diet Consistent Carbohydrate Diet Labs/Tests NA 135 Glu 317 06/12: HgbA1C 10.6 Pertinent Medications Reviewed Height 5 ft 10 in Weight 98.88 kg [place] Body Weight (kg) 75.45 BMI 31.2 Weight Status Obese Subjective/Other Information Pt. was not in room at 3 different visits. Follow up for new-onset diabetes education/intakes. Nutrition Intervention Follow-Up By: 06/16/19 Additional Comments Follow up for DM education/ intakes
--- NOTE | 2019-06-13 12:39 | Magnetic Resonance Report ---
MRI BRAIN WITHOUT CONTRAST INDICATION / CLINICAL INFORMATION: stroke. Left arm and leg weakness TECHNIQUE: Multisequence, multiplanar images were obtained. COMPARISON: None available. FINDINGS: CEREBRAL and CEREBELLAR HEMISPHERES: 2 foci of diffusion restriction are identified in the right thal amus. An 8 mm focus of diffusion restriction is identified in the lateral right thalamus which may in volve the posterior limb of the right internal capsule on diffusion image 18. A second 7 mm focus of diffusion restriction is identified in the superior right thalamus. Mild diffuse cortical volume loss and mild chronic microvascular ischemic disease is noted in the periventricular white matter. 5 mm c hronic lacunar infarct is noted in the right [place] radiata. A 7 mm chronic focal infarct is identifi ed in the left side of the corpus callosum. No large chronic infarct. No evidence for hemorrhage, mas s or extra-axial fluid collection. The posterior fossa and contents are unremarkable. VENTRICLES: Normal in size and configuration for age. VISUALIZED ORBITS: No significant abnormality. VISUALIZED PARANASAL SINUSES: No significant abnormality. ADDITIONAL FINDINGS: None. IMPRESSION: 2 subcentimeter foci of acute to subacute ischemia are identified in the right thalamus as described. Chronic focal infarcts in the right quezada radiata and left corpus callosum. Mild volume loss and chronic white matter changes. Signer Name: Ovidio Alcala Jr, MD Signed: 06/13/2019 12:35 PM Workstation Name: [id number]
--- NOTE | 2019-06-13 12:41 | Magnetic Resonance Report ---
MRA NECK WITHOUT CONTRAST HISTORY: Stroke, left arm and leg weakness COMPARISON: Prior brain performed the same day TECHNIQUE: Routine MRA of the neck is performed. 3-D/MIP reformats postprocessed. Percentage stenosi s is determined by direct quantitative measurements of distal internal carotid artery diameter compar ed with normal reference segments or by criteria similar to NASCET where applicable. CONTRAST: None. FINDINGS: Comment: There is moderate patient motion motion which limits this exam particularly at the level of the mid common carotid arteries. Cervical vertebral arteries: No significant abnormality. Common carotid arteries: No significant abnormality. Cervical internal carotid arteries: No significant abnormality. Additional findings: None. IMPRESSION: Slightly limited exam by motion. No large vessel occlusion or stenosis is identified. Signer Name: Ovidio Alcala Jr, MD Signed: 06/13/2019 12:37 PM Workstation Name: [id number]
--- NOTE | 2019-06-13 12:42 | Magnetic Resonance Report ---
MRA HEAD WITHOUT CONTRAST HISTORY: Stroke, left arm and leg weakness COMPARISON: MR brain performed the same day TECHNIQUE: Routine MRA of the head is performed. 3-D/MIP reformats postprocessed. CONTRAST: None. FINDINGS: Intracranial vertebral arteries: No significant abnormality. Basilar artery: No significant abnormality. Posterior cerebral arteries: No significant abnormality. Intracranial internal carotid arteries: No significant abnormality. Anterior cerebral arteries: No significant abnormality. Middle cerebral arteries: No significant abnormality. Additional findings: None. IMPRESSION: 1. No significant abnormality. Signer Name: Ovidio Alcala Jr, MD Signed: 06/13/2019 12:38 PM Workstation Name: [id number]
--- NOTE | 2019-06-13 20:12 | Consultation ---
History of Present Illness Consult date: 06/13/19 Reason for Consult: Stroke Chief complaint: Left sided weakness History of present illness: Patient is a 58-year-old man with a history of diabetes, hypertension, hyperlipidemia. Yesterday he will awoke at 6 AM, and noted that he had left upper and lower extremity weakness. Patient was then brought to the emergency room, however was not given TPA as he was felt to be outside of the TPA window. Patient states that he is compliant with baby aspirin at home, and also takes his antihypertensive medications. He also notes that, regardless of taking antihypertensive medications, and he checks his blood pressure at home his systolic blood pressure is often in the 180s and 190s. Past History Past Medical History: diabetes, hypertension, hyperlipidemia Past Surgical History: No surgical history Social history: lives with family, smoking, full code Family history: hypertension Medications and Allergies Allergies Allergy/AdvReac Type Severity Reaction Status Date / Time No Known Allergies Allergy Verified 06/12/19 15:06 Home Medications Medication Instructions Recorded Confirmed Last Taken Type Atorvastatin [Lipitor Tab] 40 mg PO QDAY 06/12/19 06/12/19 06/11/19 History Valsartan [Diovan] 320 mg PO QDAY 06/12/19 06/12/19 06/11/19 History hydrALAZINE [Apresoline TAB] 100 mg PO BID 06/12/19 06/12/19 06/11/19 History Active Meds: Active Medications Acetaminophen (Tylenol) 650 mg PO Q4H PRN PRN Reason: Pain MILD(1-3)/Fever >100.5/TOMAS Aspirin (Aspirin) 325 mg PO QDAY [facility] Last Admin: 06/13/19 12:01 Dose: 325 mg Documented by: Atorvastatin Calcium (Lipitor) 40 mg PO QHS [facility] Last Admin: 06/12/19 21:28 Dose: 40 mg Documented by: Famotidine (Pepcid) 20 mg PO BID [facility] Last Admin: 06/13/19 12:00 Dose: 20 mg Documented by: Glimepiride (Amaryl) 4 mg PO QDDIAB [facility] Last Admin: 06/13/19 12:00 Dose: 4 mg Documented by: Hydralazine HCl (Apresoline) 100 mg PO BID [facility] Last Admin: 06/13/19 12:01 Dose: 100 mg Documented by: Hydralazine HCl (Apresoline) 10 mg IV Q3H PRN PRN Reason: Blood Pressure Last Admin: 06/13/19 16:17 Dose: 10 mg Documented by: Hydromorphone HCl (Dilaudid) 0.5 mg IV Q3H PRN PRN Reason: Pain , Severe (7-10) Insulin Human Lispro (Humalog) 0 unit SUB-Q ACHS [facility]; Protocol Last Admin: 06/13/19 17:37 Dose: 2 unit Documented by: Metformin HCl (Glucophage) 500 mg PO BIDDIAB [facility] Last Admin: 06/13/19 17:36 Dose: 500 mg Documented by: Nicotine (Habitrol) 14 mg TD QDAY [facility] Last Admin: 06/13/19 12:02 Dose: 14 mg Documented by: Ondansetron HCl (Zofran) 4 mg IV Q8H PRN PRN Reason: Nausea And Vomiting Oxycodone/Acetaminophen (Percocet 5/325) 1 tab PO Q6H PRN PRN Reason: Pain, Moderate (4-6) Sodium Chloride (Sodium Chloride Flush Syringe 10 Ml) 10 ml IV BID [facility] Last Admin: 06/13/19 12:02 Dose: 10 ml Documented by: Sodium Chloride (Sodium Chloride Flush Syringe 10 Ml) 10 ml IV PRN PRN PRN Reason: LINE FLUSH Valsartan (Diovan) 320 mg PO QDAY [facility] Last Admin: 06/13/19 12:01 Dose: 320 mg Documented by: Zolpidem Tartrate (Ambien) 5 mg PO QHS PRN PRN Reason: Insomnia Review of Systems All systems: negative Neurological: weakness Physical Examination - Vital Signs Vital Signs: Vital Signs Pulse Resp 78 17 06/12/19 11:04 06/12/19 11:04 - Physical Exam Narrative exam: Patient was awake, alert, oriented 4, follows complex commands. No dysarthria or aphasia noted. Visual hickman full, pupils equal, round, reactive to light, no facial weakness noted, bilaterally intact light touch, tongue midline, EOMI. 5/5 strength in right upper and lower extremity, 4/5 strength in left upper and lower extremity. Bilaterally intact light touch in all extremities. Bilaterally intact to finger to nose and heel to marshall. 2+ reflexes throughout. - Constitutional General appearance: comfortable - EENT EENT: Present: ATNC, PERRL, mucous membranes moist, hearing intact, vision intact - Respiratory Respiratory: Present: lungs clear, normal breath sounds - Cardiovascular Cardiovascular: Present: regular rate, normal S1, normal S2 Extremities: Present: no clubbing, cyanosis, no inflammation - Gastrointestinal Gastrointestinal: Present: normoactive bowel sounds, soft, non-tender - Integumentary Integumentary: Present: normal - Musculoskeletal Musculoskeletal: Present: no fluid collection, no pain - Psychiatric Psychiatric: Present: mood/affect appropriate - Level of Consciousness 1a. Level of Consciousness: alert/keenly responsive - LOC Questions 1b. LOC Questions: answers both correctly - LOC Command 1c. LOC Commands: performs tasks correctly - Best Gaze 2. Best Gaze: normal - Visual 3. Visual: no visual loss - Facial Palsy 4. Facial Palsy: normal symmetrical movement - Motor Arm 5a. Motor Arm Left: no drift 5b. Motor Arm Right: no drift - Motor Leg 6a. Motor Leg Left: no drift 6b. Motor Leg Right: no drift - Limb Ataxia 7. Limb Ataxia: absent - Sensory 8. Sensory: normal - Best Language 9. Best Language: no aphasia - Dysarthria 10. Dysarthria: normal - Extinction and Inattention 11. Extinction/Inattention: no abnormality - Scoring Total Score: 0 Stroke Severity: No Stroke Symptoms Results - Laboratory Findings CBC and BMP: 06/13/19 03:48 06/13/19 03:48 Abnormal Lab Findings: Abnormal Labs 06/12/19 06/12/19 06/12/19 10:57 11:15 11:15 RBC 5.82 H Hgb 16.7 H Hct 50.2 H Hardy % (Auto) 10.7 H Hardy # Seg Neutrophils % PT 12.1 L Sodium Chloride Glucose POC Glucose 327 H Hemoglobin A1c Albumin Triglycerides LDL Cholesterol Direct HDL Cholesterol 06/12/19 06/12/19 06/12/19 11:15 11:15 11:49 RBC Hgb Hct Hardy % (Auto) Hardy # Seg Neutrophils % PT Sodium 136 L Chloride 94.8 L Glucose 390 H POC Glucose Hemoglobin A1c 10.6 H Albumin 3.7 L Triglycerides LDL Cholesterol Direct HDL Cholesterol 06/12/19 06/12/19 06/12/19 12:09 17:46 21:27 RBC Hgb Hct Hardy % (Auto) Hardy # Seg Neutrophils % PT Sodium Chloride Glucose POC Glucose 300 H 289 H 291 H Hemoglobin A1c Albumin Triglycerides LDL Cholesterol Direct HDL Cholesterol 06/13/19 06/13/19 06/13/19 03:48 03:48 11:40 RBC 5.49 H Hgb 15.9 H Hct 47.4 H Hardy % (Auto) 9.2 H Hardy # 0.9 H Seg Neutrophils % 71.3 H PT Sodium 135 L Chloride 93.1 L Glucose 317 H POC Glucose 246 H Hemoglobin A1c Albumin 3.2 L Triglycerides 288 H LDL Cholesterol Direct 44 L HDL Cholesterol 31 L 06/13/19 16:45 RBC Hgb Hct Hardy % (Auto) Hardy # Seg Neutrophils % PT Sodium Chloride Glucose POC Glucose 174 H Hemoglobin A1c Albumin Triglycerides LDL Cholesterol Direct HDL Cholesterol Assessment and Plan Patient is a 58-year-old man with a history of diabetes, hypertension, hyperlipidemia, who p/w left sided weakness. According the patient's clinical findings, the patient has had an acute ischemic stroke, as is evidenced on imaging. Plan: 1. Stroke: - MRI brain revealed 2 foci of right subcortical infarcts in the thalamus. MRA head and neck did not reveal any significant stenosis. - Echocardiogram: EF 50-55%, LA normal size, bubble study negative. LDL 44, continue statin, LDL goal less than 70. Hemoglobin A1c 10.6. Continue aspirin 81 mg daily - Start patient on Plavix 75 mg daily. Recommend for patient to have dual antiplatelet therapy with aspirin and Plavix for 90 days, after which topics can be stopped. Discussed risks and benefits of being on dual antiplatelet therapy, and patient agreed to this. - Recommend hematology consult for polycythemia, as patient is noted to have elevated hemoglobin and hematocrit. This may also be contributing to stroke risk. - Possible etiology is lacunar stroke due to uncontrolled hypertension, however recommend for patient to have long-term cardiac monitoring as outpatient with 30 day MCOT or ILR, as he states that he has had holter device monitoring in the past, and stroke may be cardiogenic vs lacunar. - PT/OT/ST - DVT Ppx: Recommend lovenox - Telemetry monitoring while in house 2. Hypertension: - Recommend target BP <220/120 to allow for permissive HTN. Recommend target normal BP starting on 06/14/19, as it would have been >48 hours from symptom onset at that time. - Will sign off as I'm not coming neurology service over the weekend. Recommend for neurologist covering the neurology service over the weekend to be consult for further management and monitoring. Thank you for allowing me to take part in the care of this patient. Mirza Srinivasan MD Neurology
[2019-06-14] MEDS: APRESOLINE IV PRN ×4 (05:11→23:24)
[2019-06-14] MEDS: GLUCOPHAGE PO SCH ×2 (08:55→17:41)
[2019-06-14] MEDS: AMARYL PO SCH (08:55)
[2019-06-14] MEDS: HumaLOG SUB-Q SCH ×4 (08:56→21:44)
[2019-06-14] MEDS: HALFPRIN EC PO SCH (09:03)
[2019-06-14] MEDS: PLAVIX PO SCH (09:03)
[2019-06-14] MEDS: DIOVAN PO SCH (09:03)
[2019-06-14] MEDS: APRESOLINE PO SCH ×3 (09:04→21:36)
[2019-06-14] MEDS: HABITROL TD SCH (09:04)
[2019-06-14] MEDS: SODIUM CHLORIDE FLUSH SYRINGE 10 ML IV SCH ×3 (09:04→21:36)
[2019-06-14] MEDS: PEPCID PO SCH ×3 (09:04→21:36)
[2019-06-14] MEDS: NORVASC PO SCH (11:30)
--- NOTE | 2019-06-14 12:49 | Progress Note ---
Assessment and Plan -Acute CVA: not a candidate for TPA Neuro w/u in progress Aspirin and statin PT and OT rehabilitation -Echo EF 50-55% abnormal diastolic fillingNo PFO -CT head without contrast; there are old small lacunar infarcts involving the right basal ganglia along with mild microvascular angiopathic no acute intracranial abnormality noted -Chest x-ray; no CHF, hypertensive changes in the aorta Right basal interstitial opacities of uncertain significance but are probably chronic -MRI brain revealed 2 foci of right subcortical infarcts in the thalamus. MRA head and neck did not reveal any significant stenosis. -HTN: continue antihypertensives PRN medications -Type 2 DM:Accu checks,SSC,ADA diet oral hypglcemics and insulin as needed HbA1c: 10.6% -Dyslipidemia:On statin. PT/OT ,rehab f/u neuro workup Discharge planning per . Plan of care reviewed with the patient and his nurse. Disposition: Follow clinically Discharge when medically stable.in 1-2 days Subjective Date of service: 06/14/19 Principal diagnosis: acute right subcuticular infarction, hypertension, dyslipidemia Interval history: Patient seen and examined. Line put in bed. Weakness on the left side improvement. Objective - Exam Narrative Exam: Constitutional: Well-nourished well-developed. In no distress Head: Normocephalic atraumatic Eyes: Pupils are equal round and reactive to light Nose: No enlarged turbinates, no septal deviation. Mouth: Moist mucous membranes. Neck: Supple no thyromegaly. No bruit. No JVD Heart: Regular rate and rhythm, S1-S2 normal. No rubs murmurs or gallop Lungs: Clear to auscultation bilaterally. no rales or rhonchi Abdomen: Soft, nontender. Bowel sound are present. Extremities: No edema, no cyanosis, no clubbing. Neuro: Alert oriented Oriented x3. Right-sided weakness with strength being 3/10. Skin: No rashes or hyperpigmented spots Musculoskeletal system: No joint pain or swelling Hematological: No petechia or subcutanous hemorrhages. Immunological: No multiple septic spots on the skin Lymphatic: No generalized lymphadenopathy Psychiatry: Euthymic. Calm. - Constitutional Vitals: Vital Signs - 12hr 06/14/19 06/14/19 06/14/19 04:12 05:00 08:12 Temperature 98.2 F 98.2 F Pulse Rate 86 87 95 H Respiratory 18 14 Rate Blood Pressure 188/99 171/87 O2 Sat by Pulse 96 95 Oximetry 06/14/19 06/14/19 06/14/19 08:20 09:03 11:30 Temperature Pulse Rate 95 H 81 Respiratory 18 Rate Blood Pressure 171/87 174/90 O2 Sat by Pulse 98 Oximetry - Labs CBC & Chem 7: 06/13/19 03:48 06/13/19 03:48 Labs: Abnormal lab results 06/13/19 06/13/19 06/14/19 Range/Units 16:45 20:16 08:21 POC Glucose 174 H 229 H 188 H (70-105) 06/14/19 Range/Units 11:25 POC Glucose 232 H (70-105)
[2019-06-14] MEDS: LOVENOX SUB-Q SCH ×2 (20:45→21:36)
[2019-06-15] MEDS: APRESOLINE IV PRN ×2 (04:11→14:19)
[2019-06-15] MEDS: HumaLOG SUB-Q SCH ×2 (07:45→11:45)
[2019-06-15] MEDS: GLUCOPHAGE PO SCH (08:35)
[2019-06-15] MEDS: AMARYL PO SCH (08:35)
[2019-06-15] MEDS: HALFPRIN EC PO SCH (09:24)
[2019-06-15] MEDS: DIOVAN PO SCH (09:25)
[2019-06-15] MEDS: PLAVIX PO SCH (09:25)
[2019-06-15] MEDS: PEPCID PO SCH (09:25)
[2019-06-15] MEDS: HABITROL TD SCH (09:25)
[2019-06-15] MEDS: NORVASC PO SCH (09:26)
[2019-06-15] MEDS: APRESOLINE PO SCH (09:26)
[2019-06-15] MEDS: SODIUM CHLORIDE FLUSH SYRINGE 10 ML IV SCH (09:27)
--- NOTE | 2019-06-15 12:49 | Discharge Summary ---
Providers - Providers Date of Admission: 06/12/19 11:48 Date of discharge: 06/15/19 Attending physician: ERLINDA MONTES DE OCA 06/12/19 21:54 Consult to Physician [CONS] Routine Comment: Consulting Provider: MAI KIDD Physician Instructions: Reason For Exam: CVA 06/12/19 21:56 Occupational Therapy Evaluate and Treat [CONS] Routine Comment: Reason For Exam: Neuro deficits Physical Therapy Evaluation and Treat [CONS] Routine Comment: Reason For Exam: Neuro deficits 06/12/19 22:02 Consult to Dietitian/Nutrition [CONS] Routine Physician Instructions: Reason For Exam: new-onset diabetes Reason for Consult: Nutrition Recommendations Reason for Consult: Diet education Primary care physician: [employer] Hospitalization Reason for admission: acute stroke, HTN, T2 DM. Condition: Good Pertinent studies: CT of the head showed old lacunar infarction MRI of the brain showed 2 areas of infarction in the right side OF thalamus Echocardiogram showed ejection fraction of 50-55% Procedures: none Hospital course: 58-year-old male with history of uncontrolled diabetes, hypertension, and DVT presents with complaints of left-sided weakness 6 since AM this morning upon waking. No history of cerebrovascular accident or RI in the past. Apparently patient was completely normal and went to bed at 11 PM. Patient unable to use his left lower extremity and left upper extremity since he woke up at 6 AM. Patient's symptoms resolved after 1 hour. Also has generalized headache for the past few days. No dizziness. Able to walk now. No recent travel. No fever or chills. No exacerbating or relieving factors. No diplopia or nasal regurgitation of fluids. CT scan of the brain showed evidence of old infarction. MRI of the brain showed evidence of acute infarction and right side of the Thalamus. Weakness on the left upper and lower strength improved. Patient able to ambulate in the room. [place] himself. His discharge for the bronchial physician in 2-5 days and neurologist in 7-10 days. Continue PT/OT at home Disposition: DC-01 TO HOME OR SELFCARE Time spent for discharge: 35 mins - Discharge Diagnoses (1) Stroke (cerebrum) Status: Acute Qualifiers: CVA mechanism: unspecified Qualified Code(s): I63.9 - Cerebral infarction, unspecified (2) Type 2 diabetes mellitus with hyperglycemia Status: Acute (3) Type 2 diabetes mellitus with hyperglycemia Status: Acute (4) Hypertension, essential Status: Acute Core Measure Documentation - Palliative Care Palliative Care/ Comfort Measures: Not Applicable - Core Measures Any of the following diagnoses?: stroke - Stroke Discharge Requirements Statin for LDL = or >70 mg/dl on DC: Yes Anticoag for atrial fib/atrial flutter: Yes Antithrombotic for ischemic stroke: Yes Exam - Physical Exam Narrative exam: Constitutional: Well-nourished well-developed. In no distress Head: Normocephalic atraumatic Eyes: Pupils are equal round and reactive to light Nose: No enlarged turbinates, no septal deviation. Mouth: Moist mucous membranes. Neck: Supple no thyromegaly. No bruit. No JVD Heart: Regular rate and rhythm, S1-S2 normal. No rubs murmurs or gallop Lungs: Clear to auscultation bilaterally. no rales or rhonchi Abdomen: Soft, nontender. Bowel sound are present. Extremities: No edema, no cyanosis, no clubbing. Neuro: Alert oriented Oriented x3. Right-sided weakness with strength being 3/10. Skin: No rashes or hyperpigmented spots Musculoskeletal system: No joint pain or swelling Hematological: No petechia or subcutanous hemorrhages. Immunological: No multiple septic spots on the skin Lymphatic: No generalized lymphadenopathy Psychiatry: Euthymic. Calm. - Constitutional Vitals: Temp Pulse Resp BP Pulse Ox 97.5 F L 88 17 172/84 97 06/15/19 08:05 06/15/19 09:26 06/15/19 08:40 06/15/19 09:26 06/15/19 08:40 Plan Activity: fall precautions Weight Bearing Status: Weight Bear as Tolerated Diet: low fat, low salt Follow up with: PRIMARY CARE, [Primary Care Provider] - 3-5 Days Prescriptions: Glimepiride [Amaryl] 4 mg PO QDDIAB #40 tablet Zolpidem [Ambien] 5 mg PO QHS PRN #30 tablet PRN Reason: Insomnia hydrALAZINE [Apresoline TAB] 100 mg PO BID #60 tab metFORMIN [Glucophage] 500 mg PO BIDDIAB #60 tablet Aspirin EC [Halfprin EC] 81 mg PO QDAY #30 tablet Lispro Insulin [HumaLOG] 6 unit SUB-Q ACHS #300 units AtorvaSTATin [Lipitor] 40 mg PO QHS #30 tablet amLODIPine [Norvasc] 10 mg PO QDAY #30 tablet Famotidine [Pepcid] 20 mg PO QDAY #30 tablet oxyCODONE /ACETAMINOPHEN [Percocet 5/325 mg] 1 tab PO Q12H PRN #10 tablet PRN Reason: Pain, Moderate (4-6) Clopidogrel [Plavix] 75 mg PO QDAY #30 tablet
[2019-06-15 14:21] VITALS: BP 178/82
== END 2019-06-15 15:11 | disposition home or self-care (01) | DRG 65 ==
LOC: ED 10:45 → 4A 11:48
PROVIDERS: ADMIT Internal Medicine; ATTEND Family Medicine
DX: I63.9 Cerebral infarction, unspecified (principal); G81.94 Hemiplegia, unspecified affecting left nondominant side; I10 Essential (primary) hypertension; E11.65 Type 2 diabetes mellitus with hyperglycemia; E78.5 Hyperlipidemia, unspecified; Z86.718 Personal history of other venous thrombosis and embolism; Z79.899 Other long term (current) drug therapy; Z82.49 Family history of ischemic heart disease and other diseases of the circulatory system
CPT/HCPCS: 36415; 70450; 70544; 70547; 70551; 71045; 80048; 80053; 80061; 80076; 82962; 83036; 83735; 83880; 84484; 85025; 85610; 85670; 85730; 93005; 93010; 93306; 96374; 99406; G0378; A9270-GY; J0360; J1650; J1815; J2405

== ENCOUNTER 2019-09-05 09:17 | Outpatient (CLI) | payer MEDICARE ==
[2019-09-05 10:55] LABS: Chol/HDL Ratio 4.06 %
== END 2019-09-05 09:18 | disposition home or self-care (01) ==
LOC: LAB 09:17
PROVIDERS: ATTEND Internal Medicine
DX: E11.65 Type 2 diabetes mellitus with hyperglycemia (principal); E78.1 Pure hyperglyceridemia
CPT/HCPCS: 36415; 80061; 83036